=== PATIENT | male | born 1945 ===

== ENCOUNTER 2017-10-09 08:27 | Day surgery (SDC) | payer MEDICARE, OTHER ==
[2015-07-15 14:45] VITALS: PULSE 117
[2017-10-09] MEDS ORDERED: Propofol 10 mg/ml Inj (20 ML) ONE (11:11)
[2017-10-09] MEDS ORDERED: Midazolam 2 MG/2 ML VIAL ONE (11:12)
[2017-10-09] MEDS ORDERED: Etomidate 40 MG/20 ML ML IV ONE (11:15)
[2017-10-09] MEDS ORDERED: Albuterol HFA 90 mcg/actuation (8 g) ONE (12:19)
[2017-10-09] MEDS ORDERED: cefTRIAXone (Rocephin) 1 gm Inj ONE (12:54)
[2017-10-09 14:45] VITALS: RESP 18; TEMP 98
[2017-10-09 14:49] VITALS: BMI 38.8
[2017-10-09 15:40] VITALS: BP 165/89; PULSE 77; O2SAT 93
--- NOTE | 2017-10-10 08:28 | OP ---
PROCEDURE DATE: 10/09/2017 PREOPERATIVE DIAGNOSIS: Bladder cancer. POSTOPERATIVE DIAGNOSIS: Bladder cancer. PROCEDURES PERFORMED: Cystoscopy, transurethral resection of large bladder tumor. ATTENDING SURGEON: Dr. Tal Meza. ANESTHESIA: General. SPECIMENS: Bladder tumor chips, sent to Pathology. DRAINS: A 20-Grenadian two-way Madrigal catheter. COMPLICATIONS: There were none. DESCRIPTION OF PROCEDURE: After informed consent was obtained, the patient was taken to the operating room and placed on the operating table. Anesthesia was administered. The patient was then placed in a dorsal lithotomy position and prepped and draped in the usual sterile fashion. A 26-Grenadian resectoscope with a visualizing obturator was placed in the patient's urethra and advanced proximally under direct vision until the bladder was entered. A full survey inspection of the bladder was then performed which revealed a large papillary tumor located on the right floor, extending onto the right lateral and right posterior wall. There was some low lying raggedy tissue, suspicious for tumor, around the large papillary tumor. In total, the area covered about 5 cm of the right bladder wall and floor. The left ureteral orifice was visualized and appeared within normal limits. The right ureteral orifice could be visualized just under the tumor. There was no apparent tumor coming out from the orifice. At this point, using a resecting loop, the tumor was resected in its entirety down into the muscle wall. Any bleeding points encountered during the resection were controlled using electrocautery. When the entire tumor has been resected, a Urovac evacuating device was used to remove the tumor chips, which were sent to Pathology. At this point, the resecting loop was removed and a rollerball electrode was passed. The base of the tumor was completely fulgurated using the rollerball electrode. The area surrounding the tumor was fulgurated as well until the area of clearly normal mucosa was reached. After the fulguration, the bladder again was irrigated. There were no remaining chips. A final inspection revealed no untreated tumor or suspicious areas. There was complete hemostasis. At this point, the procedure was completed, the bladder was drained, the resectoscope was removed, and a 20-Grenadian two-way Madrigal catheter was passed and placed to straight bladder drainage. The patient tolerated procedure well. He was taken to the recovery room awake in stable condition. Tal Meza MD [facility] # [id number]
== END 2017-10-09 16:20 | disposition home or self-care (01) ==
LOC: SDS 08:27
PROVIDERS: ATTEND Urology
DX: C67.9 Malignant neoplasm of bladder, unspecified (principal)
CPT/HCPCS: 52235; 88307; J0696; J2001; J2250; J2405; J2704; J3010; J7120

== ENCOUNTER 2018-09-21 10:39 | Outpatient (CLI) | payer MEDICARE, OTHER | END 2018-09-21 10:40 | disposition home or self-care (01) | LOC: RAD 10:39 ==

== ENCOUNTER 2018-10-09 09:09 | Outpatient (CLI) | payer MEDICARE, OTHER | END 2018-10-09 09:10 | disposition home or self-care (01) | LOC: RAD 09:09 ==

== ENCOUNTER 2018-10-25 08:30 | Outpatient (CLI) | payer MEDICARE, OTHER | END 2018-10-25 08:31 | disposition home or self-care (01) | LOC: PAT 08:30 ==

== ENCOUNTER 2018-11-26 07:41 | Day surgery (SDC) | payer MEDICARE, OTHER ==
[2015-07-15 14:45] VITALS: PULSE 117
[2018-11-26 09:56] VITALS: BMI 38.8
[2018-11-26] MEDS ORDERED: Rocuronium 10 mg/ml (5 ml) ONE (12:19)
[2018-11-26] MEDS ORDERED: Midazolam 2 MG/2 ML VIAL ONE (12:19)
[2018-11-26] MEDS ORDERED: Propofol 10 mg/ml Inj (20 ML) ONE (12:19)
[2018-11-26] MEDS ORDERED: Ciprofloxacin 400mg/200ml D5W 400 MG/200 ML BAG IVPB ONE (12:28)
[2018-11-26] MEDS ORDERED: ePHEDrine 50 mg/ml Inj ONE (12:32)
[2018-11-26] MEDS ORDERED: Neostigmine Methylsulfate 3mg/3ml Syringe IV ONE (12:39)
[2018-11-26] MEDS ORDERED: Glycopyrrolate 0.2 mg/ml (2ml vial) ONE (12:40)
[2018-11-26] MEDS ORDERED: Lactated Ringer's 1,000 ML IV SCH (13:00)
[2018-11-26 15:00] VITALS: BP 130/73; PULSE 82; RESP 18; TEMP 97.4; O2SAT 92
--- NOTE | 2018-11-27 01:52 | OP ---
PROCEDURE DATE: 11/26/2018 PREOPERATIVE DIAGNOSIS: Bladder cancer. POSTOPERATIVE DIAGNOSIS: Bladder cancer. PROCEDURES: Cystoscopy, excision and fulguration of multiple small and medium bladder tumors. ATTENDING SURGEON: Tal Meza MD ANESTHESIA: General. SPECIMENS: Bladder tumors, sent to pathology. DRAINS: There were none. COMPLICATIONS: None. OPERATIVE FINDINGS: After informed consent was obtained, the patient was taken to the operating room, placed on the operating table. Anesthesia was administered. The patient was then placed in the dorsal lithotomy position and prepped and draped in the usual sterile fashion. A 21-Libyan cystoscope was placed in the patient's urethra, advanced proximally under direct vision until the bladder was entered. A full survey inspection of bladder was then performed which revealed no stones or foreign bodies. Prostate was moderately enlarged. There was grade 1 trabeculation noted. Both ureteral orifices were visualized and appeared within normal limits. There were multiple papillary tumors noted and one larger area of flat tumor. Tumors were located on the right floor, left floor, trigone and dome. First, the tumor on the trigone was excised using a cold cup forceps and sent to pathology. Next, the tumor on the trigone measured approximately 8 mm x 5 mm. Next, the tumor on the right floor was then excised. Multiple pieces of this tumor were removed using a cold cup forceps. The area of tumor was approximately 3 cm x 2 cm. It was approaching the right ureteral orifice but was not involving the right orifice. At this point, the Bugbee electrode was then passed. The excision sites were then cauterized along with areas of surrounding normal mucosa. Hemostasis was then achieved and the Bugbee electrode was removed and the cold cup forceps was then passed. Another papillary tumor measuring about 8 mm was then removed from the left floor and sent separately as specimen and the tumor at the dome which was somewhat larger approximately 1 x 1 cm. Multiple pieces of this tumor were removed using the cold cup forceps and sent to pathology as specimen. The Bugbee electrode again was then passed. The excision sites were then cauterized along with areas of surrounding normal mucosa. A final inspection was then made. There was complete hemostasis. There were no areas of untreated tumor noted. Inspection was made with both 30-degree and 70-degree lenses. Both ureteral orifices were visualized and they were intact. At this point, the procedure was completed, the bladder was copiously irrigated and drained, and then the cystoscope was removed. The patient tolerated the procedure well. He was returned to the supine position. He received intravenous antibiotics prior to start of the procedure and he was sent to the recovery room awake and in stable condition. Tal Meza MD
== END 2018-11-26 16:10 | disposition home or self-care (01) ==
LOC: SDS 07:41
PROVIDERS: ATTEND Urology
DX: C67.0 Malignant neoplasm of trigone of bladder (principal); C67.1 Malignant neoplasm of dome of bladder; C67.9 Malignant neoplasm of bladder, unspecified; I25.10 Atherosclerotic heart disease of native coronary artery without angina pectoris; I25.2 Old myocardial infarction; Z87.891 Personal history of nicotine dependence; R06.00 Dyspnea, unspecified; E66.9 Obesity, unspecified; I49.9 Cardiac arrhythmia, unspecified; Z95.5 Presence of coronary angioplasty implant and graft; Z88.0 Allergy status to penicillin; Z68.39 Body mass index [BMI] 39.0-39.9, adult
CPT/HCPCS: 52235; 88305; J0744; J2001; J2250; J2405; J2704; J2710; J3010; J7120 ×2

== ENCOUNTER 2018-12-26 10:43 | Outpatient (CLI) | payer MEDICARE, OTHER | END 2018-12-26 10:44 | disposition home or self-care (01) | LOC: RAD 10:43 | DX: R91.1 Solitary pulmonary nodule (principal) ==